=== PATIENT | male | born 1970 | race Caucasian/White ===

== ENCOUNTER 2021-08-29 20:00 | Inpatient (IN) | payer OTHER ==
[~2021-08-29] VITALS: Ht 188 cm; Wt 96.2 kg
[2021-08-29 20:00] VITALS: BP 141/89
[2021-08-29] MEDS ORDERED: DEXTROSE 50% WATER 50ML SYRINGE IV PRN ×2 (21:45)
[2021-08-29] MEDS ORDERED: SENNOSIDES 8.6MG TABLET PO PRN (22:00)
[2021-08-29] MEDS ORDERED: HYDROCODONE/ACETAMINOPHEN 5/325MG TABLET PO PRN (22:00)
[2021-08-29] MEDS ORDERED: SODIUM CHLORIDE 0.9% INJ 3ML FLUSH IVF ONE (22:00)
[2021-08-29] MEDS ORDERED: NON FORMULARY PATIENT HOME MED XX SCH (22:00)
[2021-08-29] MEDS ORDERED: HYDRALAZINE 20MG/ML VIAL IV PRN (22:00)
[2021-08-29] MEDS ORDERED: MAGNESIUM HYDROXIDE 400MG/5ML 30ML UDC PO PRN (22:00)
[2021-08-29] MEDS ORDERED: BISACODYL 5MG TABLET PO PRN (22:00)
[2021-08-29] MEDS ORDERED: HYDRALAZINE IV PRN (22:15)
[2021-08-29] MEDS ORDERED: SODIUM CHLORIDE 0.9% IV PRN (22:15)
[2021-08-29] MEDS ORDERED: APIXABAN 5 MG TABLET PO NR (23:00)
[2021-08-29] MEDS: DOCUSATE SODIUM 100MG CAPSULE PO SCH (23:44)
[2021-08-29] MEDS: GABAPENTIN 300MG CAPSULE PO SCH (23:44)
[2021-08-29] MEDS: INSULIN GLARGINE 100 UNITS/ML SUBCUT SCH (23:53)
[2021-08-29] MEDS: INSULIN LISPRO 100 UNITS/ML SUBCUT SCH (23:54)
[2021-08-29] MEDS: TRAZODONE HCL 50MG TABLET PO SCH (23:57)
[2021-08-29] MEDS: MELATONIN 3MG TABLET PO SCH (23:59)
[2021-08-30 06:18] LABS: CHLORIDE 107 mEq/L (98-107)
[2021-08-30 06:23] LABS: HEMOGLOBIN. 12.8 g/dL (14.0-18.0)
[2021-08-30 06:27] LABS: BASOPHILS % 0.4 % (0.0-2.0); EOSINOPHILS % 2.4 % (0.0-5.0); HEMATOCRIT. 35.5 % (42.0-52.0); MEAN CORPUSCULAR HEMOGLOBIN 30.8 pg (28.0-32.0); MEAN CORPUSCULAR VOLUME 85.7 fL (80.0-94.0); MEAN PLATELET VOLUME 8.3 fl (7.4-10.4); MONOCYTES % 11.8 % (2.0-8.0); NEUTROPHILS % 33.4 % (40.0-76.0); PLATELET 270 x1000/uL (130-400); RED BLOOD CELL COUNT 4.14 mill/uL (4.7-6.1)
[2021-08-30] MEDS: BLOOD SUGAR DIAGNOSTIC STRIP TEST SCH ×4 (06:30→21:45)
[2021-08-30] MEDS ORDERED: BLOOD SUGAR DIAGNOSTIC STRIP TEST SCH (06:30)
[2021-08-30] MEDS: INSULIN LISPRO 100 UNITS/ML SUBCUT SCH ×4 (07:00→22:01)
[2021-08-30 08:00] VITALS: BP 139/76
[2021-08-30] MEDS ORDERED: INSULIN LISPRO 100 UNITS/ML SUBCUT SCH (09:00)
[2021-08-30] MEDS: DOCUSATE SODIUM 100MG CAPSULE PO SCH ×2 (10:08→15:24)
[2021-08-30] MEDS: HYDROCHLOROTHIAZIDE 25MG TABLET PO SCH (10:09)
[2021-08-30] MEDS: GABAPENTIN 300MG CAPSULE PO SCH ×3 (10:09→18:49)
[2021-08-30] MEDS: APIXABAN 5 MG TABLET PO SCH ×2 (10:09→21:45)
[2021-08-30] MEDS: AMLODIPINE 5MG TABLET PO SCH (10:10)
[2021-08-30] MEDS: LISINOPRIL 20MG TABLET PO SCH (10:10)
[2021-08-30] MEDS: HYDROCORTISONE 1% CREAM 30GM TOP SCH ×2 (10:15→21:46)
[2021-08-30] MEDS ORDERED: NALOXONE HCL 0.4MG/ML VIAL IV PRN (17:15)
[2021-08-30 20:00] VITALS: BP 118/71
[2021-08-30] MEDS ORDERED: TRAZODONE HCL 50MG TABLET PO SCH (21:00)
[2021-08-30] MEDS ORDERED: MELATONIN 3MG TABLET PO SCH (21:00)
[2021-08-30] MEDS: MELATONIN 3MG TABLET PO SCH (21:42)
[2021-08-30] MEDS: ATORVASTATIN CALCIUM 40MG TABLET PO SCH (21:44)
[2021-08-30] MEDS: TRAZODONE HCL 50MG TABLET PO SCH (21:45)
[2021-08-30] MEDS: INSULIN GLARGINE 100 UNITS/ML SUBCUT SCH (22:01)
[2021-08-31] MEDS: BLOOD SUGAR DIAGNOSTIC STRIP TEST SCH ×4 (06:03→21:14)
[2021-08-31] MEDS: INSULIN LISPRO 100 UNITS/ML SUBCUT SCH ×4 (07:19→21:04)
[2021-08-31 08:00] VITALS: BP 125/78
[2021-08-31] MEDS: DOCUSATE SODIUM 100MG CAPSULE PO SCH ×2 (08:33→16:50)
[2021-08-31] MEDS: GABAPENTIN 300MG CAPSULE PO SCH ×3 (08:35→16:49)
[2021-08-31] MEDS: HYDROCHLOROTHIAZIDE 25MG TABLET PO SCH (08:35)
[2021-08-31] MEDS: LISINOPRIL 20MG TABLET PO SCH (08:35)
[2021-08-31] MEDS: APIXABAN 5 MG TABLET PO SCH ×2 (08:35→21:00)
[2021-08-31] MEDS: HYDROCORTISONE 1% CREAM 30GM TOP SCH ×2 (08:36→21:06)
[2021-08-31] MEDS: AMLODIPINE 5MG TABLET PO SCH (11:51)
[2021-08-31] MEDS: HYDROXYZINE 10 MG TABLET PO PRN (16:48)
[2021-08-31 20:00] VITALS: BP 141/77
[2021-08-31] MEDS: MELATONIN 3MG TABLET PO SCH (21:01)
[2021-08-31] MEDS: ATORVASTATIN CALCIUM 40MG TABLET PO SCH (21:01)
[2021-08-31] MEDS: TRAZODONE HCL 50MG TABLET PO SCH (21:05)
[2021-08-31] MEDS: INSULIN GLARGINE 100 UNITS/ML SUBCUT SCH (21:05)
[2021-09-01] MEDS: BLOOD SUGAR DIAGNOSTIC STRIP TEST SCH ×4 (06:20→21:18)
[2021-09-01] MEDS: INSULIN LISPRO 100 UNITS/ML SUBCUT SCH ×4 (07:12→21:23)
[2021-09-01 08:00] VITALS: BP 122/75
[2021-09-01] MEDS: DOCUSATE SODIUM 100MG CAPSULE PO SCH ×2 (09:00→17:00)
[2021-09-01] MEDS: HYDROCHLOROTHIAZIDE 25MG TABLET PO SCH (09:31)
[2021-09-01] MEDS: APIXABAN 5 MG TABLET PO SCH ×2 (09:32→20:58)
[2021-09-01] MEDS: GABAPENTIN 300MG CAPSULE PO SCH ×3 (09:32→17:47)
[2021-09-01] MEDS: AMLODIPINE 5MG TABLET PO SCH (09:32)
[2021-09-01] MEDS: LISINOPRIL 20MG TABLET PO SCH (09:34)
[2021-09-01] MEDS: HYDROCORTISONE 1% CREAM 30GM TOP SCH ×2 (09:39→20:58)
[2021-09-01 20:00] VITALS: BP 115/65
[2021-09-01] MEDS: ATORVASTATIN CALCIUM 40MG TABLET PO SCH (20:58)
[2021-09-01] MEDS: POLYVINYL ALCOHOL OPHTH DROPS 15ML LEFTEYE SCH (20:58)
[2021-09-01] MEDS: MELATONIN 3MG TABLET PO SCH (20:59)
[2021-09-01] MEDS: TRAZODONE HCL 50MG TABLET PO SCH (20:59)
[2021-09-01] MEDS: INSULIN GLARGINE 100 UNITS/ML SUBCUT SCH (21:24)
[2021-09-02] MEDS: BLOOD SUGAR DIAGNOSTIC STRIP TEST SCH ×4 (06:23→21:10)
[2021-09-02] MEDS: INSULIN LISPRO 100 UNITS/ML SUBCUT SCH ×4 (06:30→21:00)
[2021-09-02 08:00] VITALS: BP 130/80
[2021-09-02] MEDS: GABAPENTIN 300MG CAPSULE PO SCH ×3 (09:11→17:45)
[2021-09-02] MEDS: HYDROCHLOROTHIAZIDE 25MG TABLET PO SCH (09:11)
[2021-09-02] MEDS: POLYVINYL ALCOHOL OPHTH DROPS 15ML LEFTEYE SCH ×4 (09:11→21:50)
[2021-09-02] MEDS: APIXABAN 5 MG TABLET PO SCH ×2 (09:11→21:53)
[2021-09-02] MEDS: HYDROCORTISONE 1% CREAM 30GM TOP SCH ×2 (09:11→21:50)
[2021-09-02] MEDS: LISINOPRIL 20MG TABLET PO SCH (09:12)
[2021-09-02] MEDS: AMLODIPINE 5MG TABLET PO SCH (09:12)
[2021-09-02] MEDS: DOCUSATE SODIUM 100MG CAPSULE PO SCH ×2 (09:12→17:00)
[2021-09-02] MEDS: HYDROXYZINE 10 MG TABLET PO PRN (18:39)
[2021-09-02 20:00] VITALS: BP 129/81
[2021-09-02] MEDS: TRAZODONE HCL 50MG TABLET PO SCH (21:51)
[2021-09-02] MEDS: ATORVASTATIN CALCIUM 40MG TABLET PO SCH (21:52)
[2021-09-02] MEDS: MELATONIN 3MG TABLET PO SCH (21:53)
[2021-09-02] MEDS: INSULIN GLARGINE 100 UNITS/ML SUBCUT SCH (22:01)
[2021-09-03] MEDS: BLOOD SUGAR DIAGNOSTIC STRIP TEST SCH ×4 (05:57→21:21)
[2021-09-03] MEDS: INSULIN LISPRO 100 UNITS/ML SUBCUT SCH ×4 (06:32→21:28)
[2021-09-03 08:00] VITALS: BP 131/77
[2021-09-03] MEDS: DOCUSATE SODIUM 100MG CAPSULE PO SCH ×2 (09:00→17:00)
[2021-09-03] MEDS: HYDROCHLOROTHIAZIDE 25MG TABLET PO SCH (09:51)
[2021-09-03] MEDS: GABAPENTIN 300MG CAPSULE PO SCH ×3 (09:51→17:54)
[2021-09-03] MEDS: APIXABAN 5 MG TABLET PO SCH ×2 (09:52→21:21)
[2021-09-03] MEDS: POLYVINYL ALCOHOL OPHTH DROPS 15ML LEFTEYE SCH ×4 (09:53→21:20)
[2021-09-03] MEDS: HYDROXYZINE 10 MG TABLET PO PRN (09:53)
[2021-09-03] MEDS: HYDROCORTISONE 1% CREAM 30GM TOP SCH ×2 (09:53→21:20)
[2021-09-03] MEDS: AMLODIPINE 5MG TABLET PO SCH (09:54)
[2021-09-03] MEDS: LISINOPRIL 20MG TABLET PO SCH (09:57)
[2021-09-03 16:14] LABS: EOSINOPHILS % 1.2 % (0.0-5.0); HEMATOCRIT. 38.3 % (42.0-52.0); HEMOGLOBIN. 13.4 g/dL (14.0-18.0); LYMPHOCYTES % 43.5 % (20.0-50.0); MEAN CORPUSCULAR HEMOGLOBIN 30.2 pg (28.0-32.0); MEAN CORPUSCULAR VOLUME 86.2 fL (80.0-94.0); MEAN PLATELET VOLUME 8.3 fl (7.4-10.4); MONOCYTES % 11.3 % (2.0-8.0); PLATELET 269 x1000/uL (130-400); RED BLOOD CELL COUNT 4.44 mill/uL (4.7-6.1); RED CELL DISTRIBUTION WIDTH 13.2 % (11.6-14.6)
[2021-09-03 16:20] LABS: CHLORIDE 106 mEq/L (98-107)
[2021-09-03 20:00] VITALS: BP 137/71
[2021-09-03] MEDS: ATORVASTATIN CALCIUM 40MG TABLET PO SCH (21:20)
[2021-09-03] MEDS: MELATONIN 3MG TABLET PO SCH (21:20)
[2021-09-03] MEDS: TRAZODONE HCL 50MG TABLET PO SCH (21:21)
[2021-09-03] MEDS: INSULIN GLARGINE 100 UNITS/ML SUBCUT SCH (21:29)
[2021-09-04] MEDS: BLOOD SUGAR DIAGNOSTIC STRIP TEST SCH ×4 (06:58→21:28)
[2021-09-04] MEDS: INSULIN LISPRO 100 UNITS/ML SUBCUT SCH ×4 (07:01→21:38)
[2021-09-04 08:00] VITALS: BP 122/79
[2021-09-04] MEDS: LISINOPRIL 20MG TABLET PO SCH (08:58)
[2021-09-04] MEDS: HYDROCORTISONE 1% CREAM 30GM TOP SCH ×2 (09:00→21:00)
[2021-09-04] MEDS: POLYVINYL ALCOHOL OPHTH DROPS 15ML LEFTEYE SCH ×4 (09:00→18:33)
[2021-09-04] MEDS: HYDROCODONE/ACETAMINOPHEN 5/325MG TABLET PO PRN ×2 (09:00→16:29)
[2021-09-04] MEDS: HYDROCHLOROTHIAZIDE 25MG TABLET PO SCH (09:01)
[2021-09-04] MEDS: AMLODIPINE 5MG TABLET PO SCH (09:01)
[2021-09-04] MEDS: APIXABAN 5 MG TABLET PO SCH ×2 (09:01→21:29)
[2021-09-04] MEDS: DOCUSATE SODIUM 100MG CAPSULE PO SCH ×2 (09:01→18:32)
[2021-09-04] MEDS: GABAPENTIN 300MG CAPSULE PO SCH ×3 (09:01→18:31)
[2021-09-04] MEDS: BUSPIRONE HCL 5MG TABLET PO SCH (17:00)
[2021-09-04 20:00] VITALS: BP 132/79
[2021-09-04] MEDS: MELATONIN 3MG TABLET PO SCH (21:29)
[2021-09-04] MEDS: ATORVASTATIN CALCIUM 40MG TABLET PO SCH (21:29)
[2021-09-04] MEDS: TRAZODONE HCL 50MG TABLET PO SCH (21:29)
[2021-09-04] MEDS: INSULIN GLARGINE 100 UNITS/ML SUBCUT SCH (21:40)
[2021-09-05] MEDS: BLOOD SUGAR DIAGNOSTIC STRIP TEST SCH ×4 (07:12→20:21)
[2021-09-05] MEDS: INSULIN LISPRO 100 UNITS/ML SUBCUT SCH ×4 (07:13→21:14)
[2021-09-05 08:00] VITALS: BP 132/85
[2021-09-05] MEDS: HYDROCORTISONE 1% CREAM 30GM TOP SCH ×2 (09:00→20:21)
[2021-09-05] MEDS: BUSPIRONE HCL 5MG TABLET PO SCH ×2 (09:00→17:00)
[2021-09-05] MEDS: GABAPENTIN 300MG CAPSULE PO SCH ×3 (09:11→17:56)
[2021-09-05] MEDS: APIXABAN 5 MG TABLET PO SCH ×2 (09:11→20:20)
[2021-09-05] MEDS: DOCUSATE SODIUM 100MG CAPSULE PO SCH ×2 (09:11→17:56)
[2021-09-05] MEDS: HYDROCHLOROTHIAZIDE 25MG TABLET PO SCH (09:12)
[2021-09-05] MEDS: AMLODIPINE 5MG TABLET PO SCH (09:12)
[2021-09-05] MEDS: LISINOPRIL 20MG TABLET PO SCH (09:12)
[2021-09-05] MEDS: HYDROCODONE/ACETAMINOPHEN 5/325MG TABLET PO PRN ×2 (09:13→15:06)
[2021-09-05 20:00] VITALS: BP 132/87
[2021-09-05] MEDS: TRAZODONE HCL 50MG TABLET PO SCH (20:20)
[2021-09-05] MEDS: ATORVASTATIN CALCIUM 40MG TABLET PO SCH (20:20)
[2021-09-05] MEDS: MELATONIN 3MG TABLET PO SCH (20:21)
[2021-09-05] MEDS: INSULIN GLARGINE 100 UNITS/ML SUBCUT SCH (21:11)
[2021-09-06 08:00] VITALS: BP 145/84
[2021-09-06] MEDS: AMLODIPINE 5MG TABLET PO SCH (08:21)
[2021-09-06] MEDS: DOCUSATE SODIUM 100MG CAPSULE PO SCH ×2 (08:21→18:10)
[2021-09-06] MEDS: APIXABAN 5 MG TABLET PO SCH ×2 (08:21→21:32)
[2021-09-06] MEDS: HYDROCHLOROTHIAZIDE 25MG TABLET PO SCH (08:21)
[2021-09-06] MEDS: LISINOPRIL 20MG TABLET PO SCH (08:21)
[2021-09-06] MEDS: GABAPENTIN 300MG CAPSULE PO SCH ×3 (08:21→18:10)
[2021-09-06] MEDS: BUSPIRONE HCL 5MG TABLET PO SCH ×2 (08:24→18:10)
[2021-09-06] MEDS: HYDROCODONE/ACETAMINOPHEN 5/325MG TABLET PO PRN ×3 (08:29→21:46)
[2021-09-06] MEDS: HYDROCORTISONE 1% CREAM 30GM TOP SCH ×2 (08:30→21:33)
[2021-09-06] MEDS: INSULIN LISPRO 100 UNITS/ML SUBCUT SCH ×4 (08:31→21:53)
[2021-09-06] MEDS: BLOOD SUGAR DIAGNOSTIC STRIP TEST SCH ×3 (11:15→21:33)
[2021-09-06] MEDS ORDERED: NALOXONE HCL 0.4MG/ML VIAL IV PRN (15:15)
[2021-09-06 20:00] VITALS: BP 131/75
[2021-09-06] MEDS: ATORVASTATIN CALCIUM 40MG TABLET PO SCH (21:31)
[2021-09-06] MEDS: TRAZODONE HCL 50MG TABLET PO SCH (21:31)
[2021-09-06] MEDS: MELATONIN 3MG TABLET PO SCH (21:34)
[2021-09-06] MEDS: INSULIN GLARGINE 100 UNITS/ML SUBCUT SCH (21:52)
[2021-09-07] MEDS: BLOOD SUGAR DIAGNOSTIC STRIP TEST SCH ×4 (06:11→21:15)
[2021-09-07 08:00] VITALS: BP 129/75
[2021-09-07] MEDS: APIXABAN 5 MG TABLET PO SCH ×2 (08:34→21:12)
[2021-09-07] MEDS: GABAPENTIN 300MG CAPSULE PO SCH ×3 (08:35→17:48)
[2021-09-07] MEDS: BUSPIRONE HCL 5MG TABLET PO SCH ×2 (08:35→17:48)
[2021-09-07] MEDS: HYDROCHLOROTHIAZIDE 25MG TABLET PO SCH (08:35)
[2021-09-07] MEDS: LISINOPRIL 20MG TABLET PO SCH (08:36)
[2021-09-07] MEDS: AMLODIPINE 5MG TABLET PO SCH (08:36)
[2021-09-07] MEDS: INSULIN LISPRO 100 UNITS/ML SUBCUT SCH ×4 (08:37→21:32)
[2021-09-07] MEDS: HYDROCORTISONE 1% CREAM 30GM TOP SCH ×2 (08:37→21:13)
[2021-09-07] MEDS: DOCUSATE SODIUM 100MG CAPSULE PO SCH ×2 (08:37→17:48)
[2021-09-07] MEDS: HYDROCODONE/ACETAMINOPHEN 5/325MG TABLET PO PRN ×2 (10:11→21:14)
[2021-09-07 20:00] VITALS: BP 108/72
[2021-09-07] MEDS: TRAZODONE HCL 50MG TABLET PO SCH (21:12)
[2021-09-07] MEDS: ATORVASTATIN CALCIUM 40MG TABLET PO SCH (21:12)
[2021-09-07] MEDS: MELATONIN 3MG TABLET PO SCH (21:15)
[2021-09-07] MEDS: INSULIN GLARGINE 100 UNITS/ML SUBCUT SCH (21:31)
[2021-09-08] MEDS: BLOOD SUGAR DIAGNOSTIC STRIP TEST SCH ×4 (06:30→21:46)
[2021-09-08 08:00] VITALS: BP 144/83
[2021-09-08] MEDS: INSULIN LISPRO 100 UNITS/ML SUBCUT SCH ×4 (09:00→22:35)
[2021-09-08] MEDS: DOCUSATE SODIUM 100MG CAPSULE PO SCH ×2 (09:02→16:11)
[2021-09-08] MEDS: HYDROCODONE/ACETAMINOPHEN 5/325MG TABLET PO PRN ×2 (09:02→16:15)
[2021-09-08] MEDS: GABAPENTIN 300MG CAPSULE PO SCH ×3 (09:02→16:12)
[2021-09-08] MEDS: BUSPIRONE HCL 5MG TABLET PO SCH ×3 (09:03→18:00)
[2021-09-08] MEDS: LISINOPRIL 20MG TABLET PO SCH (09:03)
[2021-09-08] MEDS: APIXABAN 5 MG TABLET PO SCH ×2 (09:03→21:31)
[2021-09-08] MEDS: AMLODIPINE 5MG TABLET PO SCH (09:04)
[2021-09-08] MEDS: HYDROCHLOROTHIAZIDE 25MG TABLET PO SCH (09:06)
[2021-09-08] MEDS: HYDROCORTISONE 1% CREAM 30GM TOP SCH ×2 (09:09→21:32)
[2021-09-08 20:00] VITALS: BP 119/72
[2021-09-08] MEDS: TRAZODONE HCL 50MG TABLET PO SCH (21:31)
[2021-09-08] MEDS: ATORVASTATIN CALCIUM 40MG TABLET PO SCH (21:31)
[2021-09-08] MEDS: MELATONIN 3MG TABLET PO SCH (21:32)
[2021-09-08] MEDS: INSULIN GLARGINE 100 UNITS/ML SUBCUT SCH (22:36)
[2021-09-09] MEDS: BLOOD SUGAR DIAGNOSTIC STRIP TEST SCH ×4 (06:34→21:07)
[2021-09-09] MEDS: INSULIN LISPRO 100 UNITS/ML SUBCUT SCH ×4 (06:36→21:13)
[2021-09-09 08:00] VITALS: BP 126/82
[2021-09-09] MEDS: LISINOPRIL 20MG TABLET PO SCH (08:50)
[2021-09-09] MEDS: DOCUSATE SODIUM 100MG CAPSULE PO SCH ×2 (08:50→16:53)
[2021-09-09] MEDS: HYDROCODONE/ACETAMINOPHEN 5/325MG TABLET PO PRN ×3 (08:50→21:02)
[2021-09-09] MEDS: HYDROCHLOROTHIAZIDE 25MG TABLET PO SCH (08:50)
[2021-09-09] MEDS: GABAPENTIN 300MG CAPSULE PO SCH ×3 (08:50→16:53)
[2021-09-09] MEDS: AMLODIPINE 5MG TABLET PO SCH (08:50)
[2021-09-09] MEDS: APIXABAN 5 MG TABLET PO SCH ×2 (08:50→20:53)
[2021-09-09] MEDS: BUSPIRONE HCL 5MG TABLET PO SCH ×3 (08:50→16:53)
[2021-09-09] MEDS: HYDROCORTISONE 1% CREAM 30GM TOP SCH ×2 (08:51→20:53)
[2021-09-09] MEDS: MECLIZINE 25MG TABLET PO PRN (18:02)
[2021-09-09 20:00] VITALS: BP 123/78
[2021-09-09] MEDS: ATORVASTATIN CALCIUM 40MG TABLET PO SCH (20:53)
[2021-09-09] MEDS: TRAZODONE HCL 50MG TABLET PO SCH (20:53)
[2021-09-09] MEDS: MELATONIN 3MG TABLET PO SCH (20:54)
[2021-09-09] MEDS: INSULIN GLARGINE 100 UNITS/ML SUBCUT SCH (21:14)
[2021-09-10] MEDS: INSULIN LISPRO 100 UNITS/ML SUBCUT SCH ×4 (06:22→21:00)
[2021-09-10] MEDS: BLOOD SUGAR DIAGNOSTIC STRIP TEST SCH ×4 (06:22→20:58)
[2021-09-10 08:00] VITALS: BP 128/76
[2021-09-10] MEDS: GABAPENTIN 300MG CAPSULE PO SCH ×3 (08:53→17:24)
[2021-09-10] MEDS: HYDROCHLOROTHIAZIDE 25MG TABLET PO SCH (08:54)
[2021-09-10] MEDS: BUSPIRONE HCL 5MG TABLET PO SCH ×3 (08:54→17:24)
[2021-09-10] MEDS: APIXABAN 5 MG TABLET PO SCH ×2 (08:54→20:55)
[2021-09-10] MEDS: LISINOPRIL 20MG TABLET PO SCH (08:55)
[2021-09-10] MEDS: AMLODIPINE 5MG TABLET PO SCH (08:55)
[2021-09-10] MEDS: DOCUSATE SODIUM 100MG CAPSULE PO SCH ×2 (08:56→17:24)
[2021-09-10] MEDS: HYDROCORTISONE 1% CREAM 30GM TOP SCH ×2 (09:00→21:00)
[2021-09-10] MEDS: MECLIZINE 25MG TABLET PO PRN ×2 (09:04→21:31)
[2021-09-10] MEDS: HYDROCODONE/ACETAMINOPHEN 5/325MG TABLET PO PRN (09:05)
[2021-09-10 20:00] VITALS: BP 124/80
[2021-09-10] MEDS: ATORVASTATIN CALCIUM 40MG TABLET PO SCH (20:54)
[2021-09-10] MEDS: MELATONIN 3MG TABLET PO SCH (20:54)
[2021-09-10] MEDS: TRAZODONE HCL 50MG TABLET PO SCH (20:54)
[2021-09-10] MEDS: INSULIN GLARGINE 100 UNITS/ML SUBCUT SCH (21:33)
[2021-09-11] MEDS: BLOOD SUGAR DIAGNOSTIC STRIP TEST SCH ×4 (06:16→21:00)
[2021-09-11 08:00] VITALS: BP 118/73
[2021-09-11] MEDS: INSULIN LISPRO 100 UNITS/ML SUBCUT SCH ×4 (09:00→21:00)
[2021-09-11] MEDS: HYDROCORTISONE 1% CREAM 30GM TOP SCH ×2 (09:00→21:52)
[2021-09-11] MEDS: APIXABAN 5 MG TABLET PO SCH ×2 (09:26→21:18)
[2021-09-11] MEDS: BUSPIRONE HCL 5MG TABLET PO SCH ×3 (09:26→16:31)
[2021-09-11] MEDS: HYDROCHLOROTHIAZIDE 25MG TABLET PO SCH (09:26)
[2021-09-11] MEDS: DOCUSATE SODIUM 100MG CAPSULE PO SCH ×2 (09:26→16:31)
[2021-09-11] MEDS: GABAPENTIN 300MG CAPSULE PO SCH ×3 (09:26→16:31)
[2021-09-11] MEDS: LISINOPRIL 20MG TABLET PO SCH (09:26)
[2021-09-11] MEDS: AMLODIPINE 5MG TABLET PO SCH (09:27)
[2021-09-11] MEDS: HYDROCODONE/ACETAMINOPHEN 5/325MG TABLET PO PRN ×2 (09:28→16:31)
[2021-09-11] MEDS: MECLIZINE 25MG TABLET PO PRN ×2 (09:32→18:06)
[2021-09-11] MEDS: MELATONIN 3MG TABLET PO SCH (21:00)
[2021-09-11] MEDS: TRAZODONE HCL 50MG TABLET PO SCH (21:18)
[2021-09-11] MEDS: ATORVASTATIN CALCIUM 40MG TABLET PO SCH (21:19)
[2021-09-11] MEDS: INSULIN GLARGINE 100 UNITS/ML SUBCUT SCH (21:52)
[2021-09-12] VITALS: BP 130/81
[2021-09-12] MEDS: BLOOD SUGAR DIAGNOSTIC STRIP TEST SCH ×4 (06:30→21:00)
[2021-09-12 06:31] LABS: HEMATOCRIT 38.6 % (42.0-52.0); HEMOGLOBIN 13.5 g/dL (14.0-18.0); MEAN CORPUSCULAR HEMOGLOBIN 30.3 pg (28.0-32.0); MEAN CORPUSCULAR VOLUME 86.7 fL (80.0-94.0); PLATELET 236 x1000/uL (130-400); RED BLOOD CELL COUNT 4.45 mill/uL (4.7-6.1); RED CELL DISTRIBUTION WIDTH 13.4 % (11.6-14.6)
[2021-09-12 06:38] LABS: CHLORIDE 105 mEq/L (98-107)
[2021-09-12] MEDS: GABAPENTIN 300MG CAPSULE PO SCH ×3 (08:41→17:27)
[2021-09-12] MEDS: BUSPIRONE HCL 5MG TABLET PO SCH ×3 (08:41→17:28)
[2021-09-12] MEDS: APIXABAN 5 MG TABLET PO SCH ×2 (08:41→21:45)
[2021-09-12] MEDS: HYDROCHLOROTHIAZIDE 25MG TABLET PO SCH (08:42)
[2021-09-12] MEDS: AMLODIPINE 5MG TABLET PO SCH (08:42)
[2021-09-12] MEDS: DOCUSATE SODIUM 100MG CAPSULE PO SCH ×2 (08:42→17:27)
[2021-09-12] MEDS: LISINOPRIL 20MG TABLET PO SCH (08:44)
[2021-09-12] MEDS: INSULIN LISPRO 100 UNITS/ML SUBCUT SCH ×3 (08:44→17:00)
[2021-09-12] MEDS: HYDROCORTISONE 1% CREAM 30GM TOP SCH ×2 (08:45→21:45)
[2021-09-12] MEDS: MECLIZINE 25MG TABLET PO PRN (11:16)
[2021-09-12] MEDS: HYDROCODONE/ACETAMINOPHEN 5/325MG TABLET PO PRN (11:20)
[2021-09-12] MEDS ORDERED: METF-416 MT (19:45)
[2021-09-12] MEDS ORDERED: SITA25TA3 MT (19:45)
[2021-09-12] MEDS ORDERED: LISI20TA31 MT (19:57)
[2021-09-12 20:00] VITALS: BP 138/80
[2021-09-12] MEDS ORDERED: HYDR25TA MT (20:00)
[2021-09-12] MEDS ORDERED: AMLO5TAB4 MT (20:00)
[2021-09-12] MEDS ORDERED: APIX5TAB MT (20:00)
[2021-09-12] MEDS ORDERED: ATOR80TA MT (20:00)
[2021-09-12] MEDS ORDERED: GLIP5TAB12 MT (20:02)
[2021-09-12] MEDS ORDERED: GABA-532 MT (20:02)
[2021-09-12] MEDS ORDERED: ASPI-1160 MT (20:02)
[2021-09-12] MEDS: MELATONIN 3MG TABLET PO SCH (21:00)
[2021-09-12] MEDS: ATORVASTATIN CALCIUM 40MG TABLET PO SCH (21:45)
[2021-09-12] MEDS: TRAZODONE HCL 50MG TABLET PO SCH (21:45)
[2021-09-13] MEDS: BLOOD SUGAR DIAGNOSTIC STRIP TEST SCH ×4 (06:30→21:34)
[2021-09-13 08:00] VITALS: BP 126/81
[2021-09-13] MEDS: APIXABAN 5 MG TABLET PO SCH ×2 (08:20→20:54)
[2021-09-13] MEDS: BUSPIRONE HCL 5MG TABLET PO SCH ×3 (08:20→17:32)
[2021-09-13] MEDS: DOCUSATE SODIUM 100MG CAPSULE PO SCH ×2 (08:20→17:32)
[2021-09-13] MEDS: GABAPENTIN 300MG CAPSULE PO SCH ×3 (08:21→17:32)
[2021-09-13] MEDS: HYDROCHLOROTHIAZIDE 25MG TABLET PO SCH (08:21)
[2021-09-13] MEDS: MECLIZINE 25MG TABLET PO PRN ×2 (08:21→17:32)
[2021-09-13] MEDS: LISINOPRIL 20MG TABLET PO SCH (08:21)
[2021-09-13] MEDS: AMLODIPINE 5MG TABLET PO SCH (08:21)
[2021-09-13] MEDS: INSULIN LISPRO 100 UNITS/ML SUBCUT SCH ×4 (08:22→21:46)
[2021-09-13] MEDS: HYDROCODONE/ACETAMINOPHEN 5/325MG TABLET PO PRN ×2 (08:22→17:32)
[2021-09-13] MEDS: HYDROCORTISONE 1% CREAM 30GM TOP SCH ×2 (09:00→20:55)
[2021-09-13 20:00] VITALS: BP 113/67
[2021-09-13] MEDS: TRAZODONE HCL 50MG TABLET PO SCH (20:55)
[2021-09-13] MEDS: ATORVASTATIN CALCIUM 40MG TABLET PO SCH (20:55)
[2021-09-13] MEDS: MELATONIN 3MG TABLET PO SCH (20:55)
[2021-09-13] MEDS: INSULIN GLARGINE 100 UNITS/ML SUBCUT SCH (21:47)
[2021-09-14] MEDS: BLOOD SUGAR DIAGNOSTIC STRIP TEST SCH ×4 (06:17→21:00)
[2021-09-14] MEDS: INSULIN LISPRO 100 UNITS/ML SUBCUT SCH ×4 (06:23→22:20)
[2021-09-14 08:00] VITALS: BP 134/86
[2021-09-14] MEDS: DOCUSATE SODIUM 100MG CAPSULE PO SCH ×2 (09:00→17:00)
[2021-09-14] MEDS: HYDROCORTISONE 1% CREAM 30GM TOP SCH ×2 (09:16→21:40)
[2021-09-14] MEDS: HYDROCODONE/ACETAMINOPHEN 5/325MG TABLET PO PRN ×2 (09:16→14:02)
[2021-09-14] MEDS: HYDROCHLOROTHIAZIDE 25MG TABLET PO SCH (09:16)
[2021-09-14] MEDS: APIXABAN 5 MG TABLET PO SCH ×2 (09:17→21:35)
[2021-09-14] MEDS: AMLODIPINE 5MG TABLET PO SCH (09:17)
[2021-09-14] MEDS: LISINOPRIL 20MG TABLET PO SCH (09:17)
[2021-09-14] MEDS: BUSPIRONE HCL 5MG TABLET PO SCH ×3 (09:17→17:23)
[2021-09-14] MEDS: GABAPENTIN 300MG CAPSULE PO SCH ×3 (09:17→17:23)
[2021-09-14] MEDS: MECLIZINE 25MG TABLET PO PRN ×2 (09:22→17:23)
[2021-09-14 20:00] VITALS: BP 135/78
[2021-09-14] MEDS: ATORVASTATIN CALCIUM 40MG TABLET PO SCH (21:35)
[2021-09-14] MEDS: TRAZODONE HCL 50MG TABLET PO SCH (21:36)
[2021-09-14] MEDS: MELATONIN 3MG TABLET PO SCH (21:36)
[2021-09-14] MEDS: INSULIN GLARGINE 100 UNITS/ML SUBCUT SCH (22:20)
[2021-09-15] MEDS: BLOOD SUGAR DIAGNOSTIC STRIP TEST SCH ×4 (07:20→21:00)
[2021-09-15 08:00] VITALS: BP 122/66
[2021-09-15] MEDS: DOCUSATE SODIUM 100MG CAPSULE PO SCH ×2 (08:11→17:00)
[2021-09-15] MEDS: GABAPENTIN 300MG CAPSULE PO SCH ×3 (08:11→17:20)
[2021-09-15] MEDS: BUSPIRONE HCL 5MG TABLET PO SCH ×3 (08:11→17:20)
[2021-09-15] MEDS: APIXABAN 5 MG TABLET PO SCH ×2 (08:11→21:52)
[2021-09-15] MEDS: AMLODIPINE 5MG TABLET PO SCH (08:12)
[2021-09-15] MEDS: LISINOPRIL 20MG TABLET PO SCH (08:12)
[2021-09-15] MEDS: HYDROCHLOROTHIAZIDE 25MG TABLET PO SCH (08:12)
[2021-09-15] MEDS: INSULIN LISPRO 100 UNITS/ML SUBCUT SCH ×4 (08:14→21:56)
[2021-09-15] MEDS: HYDROCORTISONE 1% CREAM 30GM TOP SCH ×2 (08:15→22:02)
[2021-09-15] MEDS: MECLIZINE 25MG TABLET PO PRN ×2 (13:01→17:25)
[2021-09-15] MEDS: HYDROCODONE/ACETAMINOPHEN 5/325MG TABLET PO PRN ×2 (13:03→21:54)
[2021-09-15 20:00] VITALS: BP 116/71
[2021-09-15] MEDS: MELATONIN 3MG TABLET PO SCH (21:00)
[2021-09-15] MEDS: TRAZODONE HCL 50MG TABLET PO SCH (21:52)
[2021-09-15] MEDS: ATORVASTATIN CALCIUM 40MG TABLET PO SCH (21:52)
[2021-09-15] MEDS: INSULIN GLARGINE 100 UNITS/ML SUBCUT SCH (21:57)
[2021-09-16] MEDS: BLOOD SUGAR DIAGNOSTIC STRIP TEST SCH ×4 (07:18→21:21)
[2021-09-16 08:00] VITALS: BP 124/76
[2021-09-16] MEDS: BUSPIRONE HCL 5MG TABLET PO SCH ×3 (08:52→17:35)
[2021-09-16] MEDS: MECLIZINE 25MG TABLET PO PRN ×2 (08:52→17:35)
[2021-09-16] MEDS: HYDROCHLOROTHIAZIDE 25MG TABLET PO SCH (08:53)
[2021-09-16] MEDS: APIXABAN 5 MG TABLET PO SCH ×2 (08:53→21:00)
[2021-09-16] MEDS: GABAPENTIN 300MG CAPSULE PO SCH ×3 (08:53→17:35)
[2021-09-16] MEDS: AMLODIPINE 5MG TABLET PO SCH (08:54)
[2021-09-16] MEDS: LISINOPRIL 20MG TABLET PO SCH (08:54)
[2021-09-16] MEDS: DOCUSATE SODIUM 100MG CAPSULE PO SCH ×2 (08:55→17:00)
[2021-09-16] MEDS: HYDROCODONE/ACETAMINOPHEN 5/325MG TABLET PO PRN ×3 (08:55→21:44)
[2021-09-16] MEDS: INSULIN LISPRO 100 UNITS/ML SUBCUT SCH ×4 (08:57→21:15)
[2021-09-16] MEDS: HYDROCORTISONE 1% CREAM 30GM TOP SCH ×2 (08:58→20:58)
[2021-09-16 20:00] VITALS: BP 131/88
[2021-09-16] MEDS: ATORVASTATIN CALCIUM 40MG TABLET PO SCH (20:58)
[2021-09-16] MEDS: TRAZODONE HCL 50MG TABLET PO SCH (20:58)
[2021-09-16] MEDS: MELATONIN 3MG TABLET PO SCH (21:00)
[2021-09-16] MEDS: INSULIN GLARGINE 100 UNITS/ML SUBCUT SCH (21:16)
[2021-09-17] MEDS: BLOOD SUGAR DIAGNOSTIC STRIP TEST SCH ×4 (05:41→21:14)
[2021-09-17 07:57] VITALS: BP 129/78
[2021-09-17] MEDS: HYDROCHLOROTHIAZIDE 25MG TABLET PO SCH (08:23)
[2021-09-17] MEDS: BUSPIRONE HCL 5MG TABLET PO SCH ×3 (08:23→17:01)
[2021-09-17] MEDS: LISINOPRIL 20MG TABLET PO SCH (08:24)
[2021-09-17] MEDS: HYDROCORTISONE 1% CREAM 30GM TOP SCH ×2 (08:24→21:16)
[2021-09-17] MEDS: AMLODIPINE 5MG TABLET PO SCH (08:24)
[2021-09-17] MEDS: APIXABAN 5 MG TABLET PO SCH ×2 (08:24→21:15)
[2021-09-17] MEDS: DOCUSATE SODIUM 100MG CAPSULE PO SCH ×2 (08:25→17:01)
[2021-09-17] MEDS: GABAPENTIN 300MG CAPSULE PO SCH ×3 (08:26→17:01)
[2021-09-17] MEDS: MECLIZINE 25MG TABLET PO PRN (08:32)
[2021-09-17] MEDS: HYDROCODONE/ACETAMINOPHEN 5/325MG TABLET PO PRN (08:32)
[2021-09-17] MEDS: INSULIN LISPRO 100 UNITS/ML SUBCUT SCH ×4 (08:32→21:24)
[2021-09-17] MEDS: PHENYLEPHRINE/SHK LV/MO/PET RECTAL OINTMENT 57GM PR SCH ×2 (13:37→17:05)
[2021-09-17 20:48] VITALS: BP 131/86
[2021-09-17] MEDS: ATORVASTATIN CALCIUM 40MG TABLET PO SCH (21:15)
[2021-09-17] MEDS: MELATONIN 3MG TABLET PO SCH (21:16)
[2021-09-17] MEDS: TRAZODONE HCL 50MG TABLET PO SCH (21:16)
[2021-09-17] MEDS: INSULIN GLARGINE 100 UNITS/ML SUBCUT SCH (21:26)
[2021-09-18] MEDS: PHENYLEPHRINE/SHK LV/MO/PET RECTAL OINTMENT 57GM PR SCH ×4 (00:26→17:12)
[2021-09-18] MEDS: INSULIN LISPRO 100 UNITS/ML SUBCUT SCH ×4 (06:14→21:41)
[2021-09-18] MEDS: BLOOD SUGAR DIAGNOSTIC STRIP TEST SCH ×4 (06:14→21:33)
[2021-09-18 08:00] VITALS: BP 123/78
[2021-09-18] MEDS: BUSPIRONE HCL 5MG TABLET PO SCH ×2 (08:25→17:12)
[2021-09-18] MEDS: LISINOPRIL 20MG TABLET PO SCH (08:25)
[2021-09-18] MEDS: APIXABAN 5 MG TABLET PO SCH ×2 (08:25→21:32)
[2021-09-18] MEDS: HYDROCHLOROTHIAZIDE 25MG TABLET PO SCH (08:25)
[2021-09-18] MEDS: GABAPENTIN 300MG CAPSULE PO SCH ×3 (08:25→17:11)
[2021-09-18] MEDS: DOCUSATE SODIUM 100MG CAPSULE PO SCH ×2 (08:26→17:00)
[2021-09-18] MEDS: HYDROCODONE/ACETAMINOPHEN 5/325MG TABLET PO PRN (08:26)
[2021-09-18] MEDS: MECLIZINE 25MG TABLET PO PRN (08:26)
[2021-09-18] MEDS: AMLODIPINE 5MG TABLET PO SCH (08:26)
[2021-09-18] MEDS: HYDROCORTISONE 1% CREAM 30GM TOP SCH ×2 (08:27→21:41)
[2021-09-18 20:00] VITALS: BP 125/79
[2021-09-18] MEDS: TRAZODONE HCL 50MG TABLET PO SCH (21:31)
[2021-09-18] MEDS: MELATONIN 3MG TABLET PO SCH (21:31)
[2021-09-18] MEDS: ATORVASTATIN CALCIUM 40MG TABLET PO SCH (21:31)
[2021-09-18] MEDS: INSULIN GLARGINE 100 UNITS/ML SUBCUT SCH (21:39)
[2021-09-19] MEDS: PHENYLEPHRINE/SHK LV/MO/PET RECTAL OINTMENT 57GM PR SCH ×4 (05:58→17:44)
[2021-09-19] MEDS: BLOOD SUGAR DIAGNOSTIC STRIP TEST SCH ×4 (05:58→21:13)
[2021-09-19] MEDS: INSULIN LISPRO 100 UNITS/ML SUBCUT SCH ×4 (06:01→21:42)
[2021-09-19] MEDS: HYDROCODONE/ACETAMINOPHEN 5/325MG TABLET PO PRN (07:45)
[2021-09-19 08:00] VITALS: BP 128/80
[2021-09-19] MEDS: HYDROCHLOROTHIAZIDE 25MG TABLET PO SCH (08:33)
[2021-09-19] MEDS: BUSPIRONE HCL 5MG TABLET PO SCH ×2 (08:33→17:43)
[2021-09-19] MEDS: DOCUSATE SODIUM 100MG CAPSULE PO SCH ×2 (08:33→17:43)
[2021-09-19] MEDS: LISINOPRIL 20MG TABLET PO SCH (08:33)
[2021-09-19] MEDS: APIXABAN 5 MG TABLET PO SCH ×2 (08:33→21:36)
[2021-09-19] MEDS: AMLODIPINE 5MG TABLET PO SCH (08:33)
[2021-09-19] MEDS: GABAPENTIN 300MG CAPSULE PO SCH ×3 (08:34→17:45)
[2021-09-19] MEDS: MECLIZINE 25MG TABLET PO PRN ×2 (08:34→17:43)
[2021-09-19] MEDS: HYDROCORTISONE 1% CREAM 30GM TOP SCH ×2 (08:36→21:00)
[2021-09-19 20:00] VITALS: BP 115/60
[2021-09-19] MEDS: ATORVASTATIN CALCIUM 40MG TABLET PO SCH (21:34)
[2021-09-19] MEDS: TRAZODONE HCL 50MG TABLET PO SCH (21:34)
[2021-09-19] MEDS: MELATONIN 3MG TABLET PO SCH (21:37)
[2021-09-19] MEDS: INSULIN GLARGINE 100 UNITS/ML SUBCUT SCH (21:43)
[2021-09-20] MEDS: PHENYLEPHRINE/SHK LV/MO/PET RECTAL OINTMENT 57GM PR SCH ×5 (00:26→21:00)
[2021-09-20] MEDS: BLOOD SUGAR DIAGNOSTIC STRIP TEST SCH ×4 (06:00→20:30)
[2021-09-20 06:06] LABS: CHLORIDE 107 mEq/L (98-107)
[2021-09-20 06:22] LABS: EOSINOPHILS % 2.3 % (0.0-5.0); HEMATOCRIT. 37.3 % (42.0-52.0); HEMOGLOBIN. 13.1 g/dL (14.0-18.0); MEAN CORPUSCULAR HEMOGLOBIN 30.3 pg (28.0-32.0); MEAN PLATELET VOLUME 8.2 fl (7.4-10.4); MONOCYTES % 11.5 % (2.0-8.0); NEUTROPHILS % 33.2 % (40.0-76.0); PLATELET 272 x1000/uL (130-400); RED BLOOD CELL COUNT 4.34 mill/uL (4.7-6.1); RED CELL DISTRIBUTION WIDTH 12.9 % (11.6-14.6)
[2021-09-20 07:58] VITALS: BP 121/78
[2021-09-20] MEDS: INSULIN LISPRO 100 UNITS/ML SUBCUT SCH ×4 (09:00→21:00)
[2021-09-20] MEDS: DOCUSATE SODIUM 100MG CAPSULE PO SCH ×2 (09:25→17:20)
[2021-09-20] MEDS: HYDROCHLOROTHIAZIDE 25MG TABLET PO SCH (09:25)
[2021-09-20] MEDS: GABAPENTIN 300MG CAPSULE PO SCH ×3 (09:25→17:20)
[2021-09-20] MEDS: BUSPIRONE HCL 5MG TABLET PO SCH ×2 (09:25→17:20)
[2021-09-20] MEDS: LISINOPRIL 20MG TABLET PO SCH (09:25)
[2021-09-20] MEDS: HYDROCODONE/ACETAMINOPHEN 5/325MG TABLET PO PRN ×2 (09:26→17:55)
[2021-09-20] MEDS: AMLODIPINE 5MG TABLET PO SCH (09:26)
[2021-09-20] MEDS: APIXABAN 5 MG TABLET PO SCH ×2 (09:26→21:00)
[2021-09-20] MEDS: HYDROCORTISONE 1% CREAM 30GM TOP SCH ×2 (09:34→21:00)
[2021-09-20 20:00] VITALS: BP 122/85
[2021-09-20] MEDS: TRAZODONE HCL 50MG TABLET PO SCH (21:00)
[2021-09-20] MEDS: ATORVASTATIN CALCIUM 40MG TABLET PO SCH (21:00)
[2021-09-20] MEDS: MELATONIN 3MG TABLET PO SCH (21:00)
[2021-09-20] MEDS: INSULIN GLARGINE 100 UNITS/ML SUBCUT SCH (22:00)
[2021-09-21] MEDS: PHENYLEPHRINE/SHK LV/MO/PET RECTAL OINTMENT 57GM PR SCH ×3 (06:41→17:47)
[2021-09-21] MEDS: BLOOD SUGAR DIAGNOSTIC STRIP TEST SCH ×4 (06:43→20:35)
[2021-09-21] MEDS: INSULIN LISPRO 100 UNITS/ML SUBCUT SCH ×4 (06:48→20:52)
[2021-09-21 08:00] VITALS: BP 115/83
[2021-09-21] MEDS: DOCUSATE SODIUM 100MG CAPSULE PO SCH ×2 (08:51→17:45)
[2021-09-21] MEDS: BUSPIRONE HCL 5MG TABLET PO SCH ×2 (08:51→17:46)
[2021-09-21] MEDS: HYDROCHLOROTHIAZIDE 25MG TABLET PO SCH (08:51)
[2021-09-21] MEDS: GABAPENTIN 300MG CAPSULE PO SCH ×3 (08:51→17:45)
[2021-09-21] MEDS: APIXABAN 5 MG TABLET PO SCH ×2 (08:51→20:32)
[2021-09-21] MEDS: AMLODIPINE 5MG TABLET PO SCH (08:52)
[2021-09-21] MEDS: HYDROCODONE/ACETAMINOPHEN 5/325MG TABLET PO PRN ×2 (08:53→17:47)
[2021-09-21] MEDS: LISINOPRIL 20MG TABLET PO SCH (08:54)
[2021-09-21] MEDS: HYDROCORTISONE 1% CREAM 30GM TOP SCH ×2 (09:00→21:00)
[2021-09-21] MEDS: MECLIZINE 25MG TABLET PO PRN ×2 (10:39→17:46)
[2021-09-21] MEDS: TRAZODONE HCL 50MG TABLET PO SCH (20:32)
[2021-09-21] MEDS: ATORVASTATIN CALCIUM 40MG TABLET PO SCH (20:32)
[2021-09-21] MEDS: INSULIN GLARGINE 100 UNITS/ML SUBCUT SCH (20:34)
[2021-09-21] MEDS: MELATONIN 3MG TABLET PO SCH (20:51)
[2021-09-22] MEDS: PHENYLEPHRINE/SHK LV/MO/PET RECTAL OINTMENT 57GM PR SCH ×2 (06:00)
[2021-09-22] MEDS: BLOOD SUGAR DIAGNOSTIC STRIP TEST SCH (06:12)
[2021-09-22] MEDS: GABAPENTIN 300MG CAPSULE PO SCH (08:45)
[2021-09-22] MEDS: DOCUSATE SODIUM 100MG CAPSULE PO SCH (08:45)
[2021-09-22] MEDS: MECLIZINE 25MG TABLET PO PRN (08:45)
[2021-09-22] MEDS: AMLODIPINE 5MG TABLET PO SCH (08:46)
[2021-09-22] MEDS: HYDROCHLOROTHIAZIDE 25MG TABLET PO SCH (08:46)
[2021-09-22] MEDS: APIXABAN 5 MG TABLET PO SCH (08:46)
[2021-09-22] MEDS: BUSPIRONE HCL 5MG TABLET PO SCH (08:46)
[2021-09-22] MEDS: HYDROCODONE/ACETAMINOPHEN 5/325MG TABLET PO PRN (08:48)
[2021-09-22] MEDS: LISINOPRIL 20MG TABLET PO SCH (08:49)
[2021-09-22] MEDS: INSULIN LISPRO 100 UNITS/ML SUBCUT SCH (08:53)
[2021-09-22 09:48] VITALS: BP 106/76
== END 2021-09-22 11:30 | disposition home health service (06) | DRG 45 ==
PROVIDERS: ADMIT Psychiatry & Neurology Neurology; ATTEND Hospitalist
DX: I63.9 Cerebral infarction, unspecified (principal); I82.B11 Acute embolism and thrombosis of right subclavian vein; E11.9 Type 2 diabetes mellitus without complications; G81.94 Hemiplegia, unspecified affecting left nondominant side; E78.5 Hyperlipidemia, unspecified; F43.22 Adjustment disorder with anxiety; G62.9 Polyneuropathy, unspecified; I10 Essential (primary) hypertension; F32.A Depression, unspecified; K46.9 Unspecified abdominal hernia without obstruction or gangrene; R26.9 Unspecified abnormalities of gait and mobility; R53.1 Weakness; R06.02 Shortness of breath; R19.7 Diarrhea, unspecified; R00.0 Tachycardia, unspecified; E66.9 Obesity, unspecified; I25.10 Atherosclerotic heart disease of native coronary artery without angina pectoris; I65.21 Occlusion and stenosis of right carotid artery; K59.09 Other constipation; K64.9 Unspecified hemorrhoids; Q21.1 Atrial septal defect; Z86.718 Personal history of other venous thrombosis and embolism; Z87.74 Personal history of (corrected) congenital malformations of heart and circulatory system; Z87.891 Personal history of nicotine dependence; Z68.27 Body mass index [BMI] 27.0-27.9, adult; Z79.899 Other long term (current) drug therapy
CPT/HCPCS: 36415; 80048; 80053; 82962; 83036; 84443; 85025; 85027; 92523; 92610; 93005; 93306; 93880; 93970; 97110; 97112; 97116; 97150; 97163; 97166; 97530; 97535; 97542; J1815; J8597